=== PATIENT | male | born 1995 | race Caucasian/White ===

== ENCOUNTER 2017-06-02 11:11 | Emergency (ER) | payer BC ==
[~2017-06-02] VITALS: Ht 180.3 cm; Wt 96.0 kg
[~2017-06-02 11:11] MED LIST: Z.0.NO CURRENT MEDS
[2017-06-02 11:13] VITALS: BP 137/90; PULSE 80; RESP 16; TEMP 98.6; O2SAT 97
[2017-06-02] MEDS ORDERED: BUPIVACAINE HCL PF 0.5% 10 ML VIAL INFIL ONE (13:00)
[2017-06-02] MEDS ORDERED: LIDOCAINE HCL 1% 50 ML VIAL INFIL ONE (13:00)
[2017-06-02] MEDS ORDERED: TETANUS/DIPHTHERIA TOXOID ADULT 0.5 ML VIAL IM ONE (13:00)
--- NOTE | 2017-06-02 13:00 | PD ---
HPI Chief Complaint: Laceration/Skin Injury Time Seen by Provider: 12:56 Travel History International Travel<30 days: No Contact w/Intl Traveler<30days: No Traveled to known affect area: No History of Present Illness HPI 22-year-old male presents emergency Department with complaint of a laceration to the distal aspect of his right fifth finger from getting it stuck in between a board and a bar and when he pulled his finger out and cut his finger. Unknown tetanus status. Denies paresthesias, loss of sensation, decreased range of motion, decreased strength to the affected finger. Has applied pressure to control bleeding. Has not taken any medications to alleviate symptoms. Rates pain 2/10. Describes as a throbbing sensation. Has no medical complaints. No known allergies. No other modifying factors or associated signs and symptoms. PFSH Past Medical History Diminished Hearing: No Immunizations Current: Yes Tetanus Vaccination: Unknown Social History Alcohol Use: No Tobacco Use: No Substance Use: No Allergies-Medications (Allergen,Severity, Reaction): Coded Allergies: No Known Allergies (Unverified Adverse Reaction, Unknown, 06/02/17) Reported Meds & Prescriptions Reported Meds & Active Scripts Active Ibuprofen 800 Mg Tab 800 Mg PO Q6HR PRN Bactrim DS (Sulfamethoxazole-Trimethoprim) 800-160 Mg Tab 1 Tab PO BID 7 Days Review of Systems Except as stated in HPI: all other systems reviewed are Neg Physical Exam Narrative GENERAL: Well-nourished, well-developed male patient, in no acute distress SKIN: Warm and dry. Distal aspect of right fifth finger with partial nail avulsion and skin avulsion; bleeding controlled; sensory intact; finger with full range of motion and good opposition; less than 3 second cap refill; 2+ radial pulse. HEAD: Atraumatic. Normocephalic. EYES: Pupils equal and round. No scleral icterus. No injection or drainage. ENT: Mucosa pink and moist. Airway patent. NECK: Trachea midline. CARDIOVASCULAR: Regular rate. RESPIRATORY: No accessory muscle use. GASTROINTESTINAL: Round. MUSCULOSKELETAL: No obvious deformities. No clubbing. No cyanosis. No edema. NEUROLOGICAL: Awake and alert. Oriented 3. No obvious cranial nerve deficits. Motor grossly within normal limits. Normal speech. PSYCHIATRIC: Appropriate mood and affect; insight and judgment normal. Data Data Last Documented VS Vital Signs Date Time Temp Pulse Resp B/P (MAP) Pulse Ox O2 Delivery O2 Flow Rate FiO2 06/02/17 13:21 65 16 113/53 (73) 98 Room Air 06/02/17 11:13 98.6 Orders Orders Bupivacaine Pf 0.5% Inj (Marcaine Pf 0.5 (06/02/17 13:00) Lidocaine 1% Inj (50 Ml) (Xylocaine 1% I (06/02/17 13:00) Tetanus/Diphtheria Tox Adult (Tetanus/Di (06/02/17 13:00) Gelatin 12 Mm/7 Mm Top (Gelfoam 12 Mm/7 (06/02/17 13:30) MDM Medical Decision Making Medical Screen Exam Complete: Yes Emergency Medical Condition: Yes Medical Record Reviewed: Yes Differential Diagnosis Avulsion, laceration, abrasion Narrative Course 22-year-old male physical exam consistent with an avulsion of the right fifth finger including approximately one third of the fingernail and the skin of of the tip of the finger. Tetanus updated in the ER. See my procedure note for avulsion repair. Gelfoam applied and wound care provided. Bactrim and ibuprofen prescribed for home. Instructed patient to follow up with primary care provider. Patient verbalizes understanding and agreement with treatment plan. Patient is medically cleared and stable for discharge. Discussed reasons to return to the emergency department. Patient agrees with treatment plan. The patients vital signs are stable and the patient is stable for outpatient follow-up and treatment. Patient discharged home, stable and in no acute distress. Procedures Procedure Narrative LACERATION LOCATION: Distal aspect of right fifth finger LENGTH: Avulsion including partial nail bed Gelfoam was used for wound care REPAIR: The area of the laceration was cleaned with normal saline. The finger was digitally blocked with 0.5% bupivacaine and 1% lidocaine. The wound was copiously irrigated and explored without evidence of foreign body, tendon injury or neurovascular injury. The tip of the nail and an area of skin from the tip of the finger was cut away using scissors. The wound was closed using gelfoam. This was a single layer repair. A sterile dressing was applied. The patient was advised to keep the dressing clean and dry. Patient tolerated the procedure well. Diagnosis Primary Impression: Avulsion of fingernail Qualified Codes: S61.309A - Unspecified open wound of unspecified finger with damage to nail, initial encounter Additional Impression: Avulsion of finger tip Qualified Codes: S61.209A - Unspecified open wound of unspecified finger without damage to nail, initial encounter Referrals: Primary Care Physician Patient Instructions: Acute Wound Care (DC), General Instructions, Nail Avulsion (ED) Departure Forms: Tests/Procedures, Work Release Enter return to work date: Jun 05, 2017 Additional Instructions: Keep area clean and dry Change bandage in the next 2-3 days Antibiotic ointment instructed and as needed for wound care Ibuprofen or Tylenol as directed and as dictated per pain and inflammation Ice to affected area to reduce pain and inflammation Follow-up with primary care provider Return to the emergency department immediately with worsening of symptoms Med/Other Pt SpecificInfo: Prescription(s) given Scripts Ibuprofen (Ibuprofen) 800 Mg Tab 800 MG PO Q6HR Y for PAIN, #30 TAB 0 Refills Prov: Torie Fuller 06/02/17 Sulfamethoxazole-Trimethoprim (Bactrim DS) 800-160 Mg Tab 1 TAB PO BID for Infection for 7 Days, #14 TAB 0 Refills Prov: Torie Fuller 06/02/17 Disposition: 01 DISCHARGE HOME Condition: Stable Torie Fuller Jun 02, 2017 13:00
[2017-06-02 13:21] VITALS: BP 113/53; PULSE 65; RESP 16; O2SAT 98
[2017-06-02] MEDS ORDERED: GELATIN 12 MM/7 MM FOAM TOPICAL ONE (13:30)
[2017-06-02] MEDS ORDERED: IBUP1TAB7 PO (13:39)
[2017-06-02] MEDS ORDERED: BACT800T5 PO (13:39)
== END 2017-06-02 13:47 | disposition home or self-care (01) ==
LOC: PHEFT 11:11
DX: S61.316A Laceration without foreign body of right little finger with damage to nail, initial encounter (principal); W23.0XXA Caught, crushed, jammed, or pinched between moving objects, initial encounter; Z23 Encounter for immunization
CPT/HCPCS: 11765; 90471; 90714